=== PATIENT | male | born 1975 | race Caucasian/White ===

== ENCOUNTER 2018-07-16 09:00 | Outpatient (CLI) | payer MEDICAID ==
[~2018-07-16] VITALS: Ht 175.3 cm; Wt 90.7 kg
== END 2018-07-16 10:08 | disposition home or self-care (01) ==
LOC: PREOP 09:00
PROVIDERS: ATTEND Otolaryngology Otolaryngology/Facial Plastic Surgery
DX: Z01.818 Encounter for other preprocedural examination (principal)

== ENCOUNTER 2018-07-23 07:59 | Day surgery (SDC) | payer MEDICAID ==
[~2018-07-23] VITALS: Ht 175.3 cm; Wt 89.5 kg
--- OUTSIDE RECORDS SUMMARY | 2018-07-23 08:11 | XMS REPORT | Clinical Summary ---
Author Author Admin, EBER Organization [facility] Address Unknown Phone Allergies, Adverse Reactions, Alerts Allergy Name Reaction Description Start Date Severity Status Provider PENICILLIN Critical Active Mitch Howard MD Conditions or Problems Problem Name Problem Code Onset Date Status Entry Date Provider Comment Standard Description Annotate Asthma 493.90 Active Mitch Howard MD Asthma, unspecified Chest pain 786.50 Active Mitch Howard MD Unspecified chest pain Dysphagia 787.20 Active Harley Garcia MD Dysphagia, unspecified Medication List Medication Instructions Start Date Stop Date Generic Name NDC Status Provider Patient Instruction RANITIDINE HCL 150 MG CAPS 1 twice a day RANITIDINE HCL 39763132694 Active Mitch Howard MD Active PROAIR HFA 108 (90 BASE) MCG/ACT AERS 2 puffs prn ALBUTEROL SULFATE 88961830501 Active Mitch Howard MD Active Vital Signs Date Name Value Unit Range Description blood pressure, diastolic 81 mm[Hg] BP dennison blood pressure, systolic 117 mm[Hg] BP sys height E&M 70.5 [in_us] Bdy height pulse rate E&M 71 /min Heart rate temperature E&M 98.6 [degF] Body temperature weight E&M 192 [lb_av] Weight Measured blood pressure, diastolic 74 mm[Hg] BP dennison blood pressure, systolic 116 mm[Hg] BP sys height E&M 70.5 [in_us] Bdy height pulse rate E&M 86 /min Heart rate temperature E&M 98.2 [degF] Body temperature weight E&M 194.13 [lb_av] Weight Measured Encounters Code Encounter Date Provider Facility CPT-48863 Level 3 New Patient 15:14:59 CDT Mitch Howard MD [facility] Procedures Code Procedure Name Date Entry Date Standard Description CPT-OV Office Visit 16:42:18 CDT CPT-22055 EKG Trac and Interp 14:44:42 CDT CPT-16146 Chest 2V Frontal and Lat 14:44:42 CDT
--- OUTSIDE RECORDS SUMMARY | 2018-07-23 08:11 | XMS REPORT | Clinical Summary ---
Author Author Admin, EBER Organization [facility] Address Unknown Phone Allergies, Adverse Reactions, [...] 787.20 Active Harley Garcia MD Dysphagia, unspecified Back pain 724.5 Active Mitch Howard MD Backache, unspecified Constipation 564.00 Active Mitch Howard MD Constipation, unspecified Medication List Medication Instructions Start Date Stop Date Generic Name NDC Status Provider Patient Instruction CYCLOBENZAPRINE HCL 5 MG TABS 1 three times a day as needed for muscle spasm CYCLOBENZAPRINE HCL 99909002763 Active Mitch Howard MD Active NAPROXEN 500 MG TAB Take one (1) tablet by mouth twice a day with food for back pain NAPROXEN 33025384956 Active Mitch Howard MD Active RANITIDINE HCL 150 MG CAPS 1 twice a day RANITIDINE HCL 45874770379 Active Mitch Howard MD Active PROAIR HFA 108 (90 BASE) MCG/ACT AERS 2 puffs prn ALBUTEROL SULFATE 18806041934 Active Mitch Howard MD Active Vital Signs Date Name Value Unit Range Description blood pressure, diastolic - 8462-4 81 mm[Hg] BP dennison blood pressure, systolic - 8480-6 117 mm[Hg] BP sys height E&M - 8302-2 70.5 [in_us] Bdy height pulse rate E&M - 8867-4 71 /min Heart rate temperature E&M 98.6 [degF] Body temperature weight E&M - 3141-9 192 [lb_av] Weight Measured blood pressure, diastolic - 8462-4 74 mm[Hg] BP dennison blood pressure, systolic - 8480-6 116 mm[Hg] BP sys height E&M - 8302-2 70.5 [in_us] Bdy height pulse rate E&M - 8867-4 86 /min Heart rate temperature E&M 98.2 [degF] Body temperature weight E&M - 3141-9 194.13 [lb_av] Weight Measured Encounters Code Encounter Date Provider Facility CPT-75166 Level 4 Est. Patient 11:12:20 CDT Mitch Howard MD [facility] CPT-52966 Level 3 New Patient 15:14:59 CDT Mitch Howard MD [facility] Procedures Code Procedure Name Date Entry Date Standard Description CPT-OV Office Visit 16:42:18 CDT CPT-97064 EKG Trac and Interp 14:44:42 CDT CPT-28410 Chest 2V Frontal and Lat 14:44:42 CDT
--- OUTSIDE RECORDS SUMMARY | 2018-07-23 08:11 | XMS REPORT | Clinical Summary ---
Author Author Admin, EBER Gupta [facility] Address Unknown Phone Unavailable Allergies, Adverse Reactions, Alerts Allergy Name Reaction [...] Instructions Start Date Stop Date Generic Name ND Status Provider Patient Instruction CYCLOBENZAPRINE HCL 5 MG TABS 1 three times a day as needed for muscle spasm CYCLOBENZAPRINE HCL 27182457051 Active Mitch Howard MD Active NAPROXEN 500 MG TAB Take one (1) tablet by mouth twice a day with food for back pain NAPROXEN 46094346229 No Longer Active Mitch Howard MD Active RANITIDINE HCL 150 MG CAPS 1 twice a day RANITIDINE HCL 80403736459 Active Mitch Howard MD Active PROAIR HFA 108 (90 BASE) MCG/ACT AERS 2 puffs prn ALBUTEROL SULFATE 61966362832 Active Mitch Howard MD Active NAPROXEN 500 MG TAB Take one (1) tablet by mouth twice a day with food for back pain NAPROXEN 500 MG TAB 198379 NAPROXEN Inactive Vital Signs Date Name Value Unit Range Description blood pressure, diastolic - 8462-4 73 mm[Hg] BP dennison blood pressure, systolic - 8480-6 147 mm[Hg] BP sys pulse rate E&M - 8867-4 76 /min Heart rate temperature E&M 98.3 [degF] Body temperature weight E&M - 3141-9 191.2 [lb_av] Weight Measured blood pressure, diastolic - 8462-4 81 mm[Hg] [...] Measured Encounters Code Encounter Date Provider Facility CPT-60504 Level 4 Est. Patient 11:12:20 CDT Mitch Howard MD [facility] CPT-54261 Level 3 New Patient 15:14:59 CDT Mitch Howard MD [facility] Procedures Code Procedure Name Date Entry Date Standard Description CPT-OV Office Visit 16:42:18 CDT CPT-26199 EKG Trac and Interp 14:44:42 CDT CPT-14895 Chest 2V Frontal and Lat 14:44:42 CDT
--- OUTSIDE RECORDS SUMMARY | 2018-07-23 08:11 | XMS REPORT | Clinical Summary ---
Author Author Admin, EBER Organization [facility] Address Unknown Phone Allergies, Adverse Reactions, [...] CAPS 1 twice a day RANITIDINE HCL 16438147980 Active Mitch Howard MD Active PROAIR HFA 108 (90 BASE) MCG/ACT AERS 2 puffs prn ALBUTEROL SULFATE 66512486099 Active Mitch Howard MD Active Vital Signs [...] Measured Encounters Code Encounter Date Provider Facility CPT-19301 Level 3 New Patient 15:14:59 CDT Mitch Howard MD [facility] Procedures Code Procedure Name Date Entry Date Standard Description CPT-OV Office Visit 16:42:18 CDT CPT-71328 EKG Trac and Interp 14:44:42 CDT CPT-59049 Chest 2V Frontal and Lat 14:44:42 CDT
--- OUTSIDE RECORDS SUMMARY | 2018-07-23 08:11 | XMS REPORT | Clinical Summary ---
Author Author Admin, EBER Organization [facility] Address Unknown Phone Allergies, Adverse Reactions, Alerts [...] as needed for muscle spasm CYCLOBENZAPRINE HCL 85124816271 Active Mitch Howard MD Active NAPROXEN 500 MG TAB Take one (1) tablet by mouth twice a day with food for back pain NAPROXEN 13345735017 Active Mitch Howard MD Active RANITIDINE HCL 150 MG CAPS 1 twice a day RANITIDINE HCL 09356287520 Active Mitch Howard MD Active PROAIR HFA 108 (90 BASE) MCG/ACT AERS 2 puffs prn ALBUTEROL SULFATE 37091490157 Active Mitch Howard MD Active Vital Signs [...] Measured Encounters Code Encounter Date Provider Facility CPT-82036 Level 4 Est. Patient 11:12:20 CDT Mitch Howard MD [facility] CPT-95683 Level 3 New Patient 15:14:59 CDT Mitch Howard MD [facility] Procedures Code Procedure Name Date Entry Date Standard Description CPT-OV Office Visit 16:42:18 CDT CPT-18109 EKG Trac and Interp 14:44:42 CDT CPT-42046 Chest 2V Frontal and Lat 14:44:42 CDT
--- OUTSIDE RECORDS SUMMARY | 2018-07-23 08:11 | XMS REPORT | Clinical Summary ---
Author Author Admin, EBER Organization [facility] Address Unknown Phone Allergies, Adverse Reactions, [...] CAPS 1 twice a day RANITIDINE HCL 97370852418 Active Mitch Howard MD Active PROAIR HFA 108 (90 BASE) MCG/ACT AERS 2 puffs prn ALBUTEROL SULFATE 49337083004 Active Mitch Howard MD Active Vital Signs [...] Measured Encounters Code Encounter Date Provider Facility CPT-29938 Level 3 New Patient 15:14:59 CDT Mitch Howard MD [facility] Procedures Code Procedure Name Date Entry Date Standard Description CPT-OV Office Visit 16:42:18 CDT CPT-57981 EKG Trac and Interp 14:44:42 CDT CPT-62044 Chest 2V Frontal and Lat 14:44:42 CDT
--- OUTSIDE RECORDS SUMMARY | 2018-07-23 08:11 | XMS REPORT | Clinical Summary ---
Author Author Admin, EBER Organization [facility] Address Unknown Phone Allergies, Adverse Reactions, Alerts [...] CAPS 1 twice a day RANITIDINE HCL 83624989358 Active Mitch Howard MD Active PROAIR HFA 108 (90 BASE) MCG/ACT AERS 2 puffs prn ALBUTEROL SULFATE 29894476187 Active Mitch Howard MD Active Vital Signs [...] Measured Encounters Code Encounter Date Provider Facility CPT-40247 Level 3 New Patient 15:14:59 CDT Mitch Howard MD [facility] Procedures Code Procedure Name Date Entry Date Standard Description CPT-OV Office Visit 16:42:18 CDT CPT-12117 EKG Trac and Interp 14:44:42 CDT CPT-74257 Chest 2V Frontal and Lat 14:44:42 CDT
--- OUTSIDE RECORDS SUMMARY | 2018-07-23 08:11 | XMS REPORT | Clinical Summary ---
Author Author Admin, EBER Organization [facility] Address Unknown Phone Allergies, Adverse Reactions, [...] CAPS 1 twice a day RANITIDINE HCL 49699336576 Active Mitch Howard MD Active PROAIR HFA 108 (90 BASE) MCG/ACT AERS 2 puffs prn ALBUTEROL SULFATE 11990237359 Active Mitch Howard MD Active Vital Signs [...] Measured Encounters Code Encounter Date Provider Facility CPT-02289 Level 3 New Patient 15:14:59 CDT Mitch Howard MD [facility] Procedures Code Procedure Name Date Entry Date Standard Description CPT-OV Office Visit 16:42:18 CDT CPT-53398 EKG Trac and Interp 14:44:42 CDT CPT-39588 Chest 2V Frontal and Lat 14:44:42 CDT
--- OUTSIDE RECORDS SUMMARY | 2018-07-23 08:11 | XMS REPORT | Clinical Summary ---
Author Author Admin, EBER Organization [facility] Address Unknown Phone Allergies, Adverse Reactions, Alerts [...] CAPS 1 twice a day RANITIDINE HCL 78181641245 Active Mitch Howard MD Active PROAIR HFA 108 (90 BASE) MCG/ACT AERS 2 puffs prn ALBUTEROL SULFATE 35822836436 Active Mitch Howard MD Active Vital Signs [...] Measured Encounters Code Encounter Date Provider Facility CPT-57758 Level 3 New Patient 15:14:59 CDT Mitch Howard MD [facility] Procedures Code Procedure Name Date Entry Date Standard Description CPT-OV Office Visit 16:42:18 CDT CPT-22601 EKG Trac and Interp 14:44:42 CDT CPT-42731 Chest 2V Frontal and Lat 14:44:42 CDT
--- OUTSIDE RECORDS SUMMARY | 2018-07-23 08:12 | XMS REPORT | Continuity of Care Document ---
Author Author [facility] Organization [facility] Address Unknown Phone Unavailable Allergies Active Description Code Type Severity Reaction Onset Reported/Identified Relationship to Patient Clinical Status Yes penicillin 3 Drug N/A N/A Yes Penicillins 476 Drug Allergy N/ A N/A Confirmed or Verified Yes Penicillins [id number] Drug Allergy Unknown A CHILD 07/16/2018 Medications There is no data. Problems Date Dx Coded Attending Type Code Diagnosis Diagnosed By 07/16/2018 SLICK DUDLEY MD Ot Z01.818 ENCOUNTER FOR OTHER PREPROCEDURAL EXAMIN Procedures There is no data. Results There is no data. Encounters ACCT No. Visit Date/Time Discharge Status Pt. Type Provider Facility Loc./Unit Complaint [id number] 03/15/2017 21:00:00 03/16/2017 00:05:00 DIS Emergency MARTHA COLBY [facility] right chest pain [id number] 12/22/2013 08:20:00 12/22/2013 12:40:00 DIS Inpatient SARAH BOYCE [facility] OPS [id number] 07/16/2018 09:00:00 07/16/2018 10:08:00 DIS Outpatient SLICK DUDLEY MD [facility] PREOP ADENOTONSILLAR HYPERTROPHY [id number] 07/23/2018 12:00:00 PEN Preadmit SLICK DUDLEY MD [facility] SDC ADENOTONSILLAR HYPERTROPHY
--- OUTSIDE RECORDS SUMMARY | 2018-07-23 08:12 | XMS REPORT | Clinical Summary ---
Author Author Admin, EBER Organization [facility] Address Unknown Phone Allergies, Adverse Reactions, Alerts [...] CAPS 1 twice a day RANITIDINE HCL 45042279874 Active Mitch Howard MD Active PROAIR HFA 108 (90 BASE) MCG/ACT AERS 2 puffs prn ALBUTEROL SULFATE 61574780623 Active Mitch Howard MD Active Vital Signs [...] Measured Encounters Code Encounter Date Provider Facility CPT-69901 Level 3 New Patient 15:14:59 CDT Mitch Howard MD [facility] Procedures Code Procedure Name Date Entry Date Standard Description CPT-OV Office Visit 16:42:18 CDT CPT-63173 EKG Trac and Interp 14:44:42 CDT CPT-34953 Chest 2V Frontal and Lat 14:44:42 CDT
--- OUTSIDE RECORDS SUMMARY | 2018-07-23 08:12 | XMS REPORT | Clinical Summary ---
Author Author Admin, EBER Gupta [facility] Address Unknown Phone Unavailable Allergies, Adverse Reactions, [...] as needed for muscle spasm CYCLOBENZAPRINE HCL 18364715538 Active Mitch Howard MD Active NAPROXEN 500 MG TAB Take one (1) tablet by mouth twice a day with food for back pain NAPROXEN 83497803790 No Longer Active Mitch Howard MD Active RANITIDINE HCL 150 MG CAPS 1 twice a day RANITIDINE HCL 61503639497 Active Mitch Howard MD Active PROAIR HFA 108 (90 BASE) MCG/ACT AERS 2 puffs prn ALBUTEROL SULFATE 68635129036 Active Mitch Howard MD Active NAPROXEN 500 MG TAB Take one (1) tablet by mouth twice a day with food for back pain NAPROXEN 500 MG TAB 411491 NAPROXEN Inactive Vital Signs Date Name Value [...] Measured Encounters Code Encounter Date Provider Facility CPT-92969 Level 4 Est. Patient 11:12:20 CDT Mitch Howard MD [facility] CPT-95034 Level 3 New Patient 15:14:59 CDT Mitch Howard MD [facility] Procedures Code Procedure Name Date Entry Date Standard Description CPT-OV Office Visit 16:42:18 CDT CPT-51985 EKG Trac and Interp 14:44:42 CDT CPT-75838 Chest 2V Frontal and Lat 14:44:42 CDT
--- OUTSIDE RECORDS SUMMARY | 2018-07-23 08:12 | XMS REPORT | Clinical Summary ---
Author Author Admin, EBER Organization [facility] Address Unknown Phone Allergies, Adverse Reactions, Alerts [...] CAPS 1 twice a day RANITIDINE HCL 33775723431 Active Mitch Howard MD Active PROAIR HFA 108 (90 BASE) MCG/ACT AERS 2 puffs prn ALBUTEROL SULFATE 27920132510 Active Mitch Howard MD Active Vital Signs [...] Measured Encounters Code Encounter Date Provider Facility CPT-68693 Level 3 New Patient 15:14:59 CDT Mitch Howard MD [facility] Procedures Code Procedure Name Date Entry Date Standard Description CPT-OV Office Visit 16:42:18 CDT CPT-25533 EKG Trac and Interp 14:44:42 CDT CPT-04890 Chest 2V Frontal and Lat 14:44:42 CDT
--- OUTSIDE RECORDS SUMMARY | 2018-07-23 08:12 | XMS REPORT | Clinical Summary ---
Author Author Admin, EBER Organization [facility] Address Unknown Phone Allergies, Adverse Reactions, Alerts [...] CAPS 1 twice a day RANITIDINE HCL 77501132099 Active Mitch Howard MD Active PROAIR HFA 108 (90 BASE) MCG/ACT AERS 2 puffs prn ALBUTEROL SULFATE 24890938280 Active Mitch Howard MD Active Vital Signs [...] Measured Encounters Code Encounter Date Provider Facility CPT-50412 Level 3 New Patient 15:14:59 CDT Mitch Howard MD [facility] Procedures Code Procedure Name Date Entry Date Standard Description CPT-OV Office Visit 16:42:18 CDT CPT-75179 EKG Trac and Interp 14:44:42 CDT CPT-69568 Chest 2V Frontal and Lat 14:44:42 CDT
[2018-07-23] MEDS ORDERED: NS IV 500 ML 500 ML IV PRN (08:20)
[2018-07-23] MEDS ORDERED: APAP 325 MG/10.15 ML LIQ (TYLENOL) UDC PO ONE (08:30)
[2018-07-23] MEDS ORDERED: MIDAZOLAM SYRUP (VERSED) 10MG/5ML UDC PO ONE (08:30)
[2018-07-23] MEDS ORDERED: LACTATED RINGERS 1,000 ML IV PRN (08:31)
[2018-07-23 09:09] LABS: BASOPHILS % (AUTO) 1 % (0-10); EOSINOPHILS # (AUTO) 0.1 10^3/uL (0.0-0.3); EOSINOPHILS % (AUTO) 1 % (0-10); HEMATOCRIT 46 % (40-54); HEMOGLOBIN 15.9 G/DL (13.3-17.7); LYMPHOCYTES # (AUTO) 1.7 X 10^3 (1.0-4.0); LYMPHOCYTES % (AUTO) 26 % (12-44); MEAN CORPUSCULAR HEMOGLOBIN 29 PG (25-34); MEAN CORPUSCULAR HGB CONC 35 G/DL (32-36); MEAN CORPUSCULAR VOLUME 84 FL (80-99); MEAN PLATELET VOLUME 8.9 FL (7.4-10.4); MONOCYTES # (AUTO) 0.8 X 10^3 (0.0-1.0); MONOCYTES % (AUTO) 11 % (0-12); NEUTROPHILS % (AUTO) 61 % (42-75); PLATELET COUNT 242 10^3/uL (130-400); RED BLOOD COUNT 5.49 10^6/uL (4.35-5.85); RED CELL DISTRIBUTION WIDTH 12.9 % (10.0-14.5); WHITE BLOOD COUNT 6.7 10^3/uL (4.3-11.0)
--- NOTE | 2018-07-23 09:14 | Progress Note-Pre Operative ---
Pre-Operative Progress Note H&P Reviewed The H&P was reviewed, patient examined and no changes noted. Date Seen by Provider: Jul 23, 2018 Time Seen by Provider: 09:00 Date H&P Reviewed: Jul 23, 2018 Time H&P Reviewed: 09:00 Pre-Operative Diagnosis: Chronic Tonsillitis, Tonsillar Hypertrophy SLICK DUDLEY MD Jul 23, 2018 9:14 am
[2018-07-23] MEDS ORDERED: ONDANSETRON 4 MG/2 ML (SDV) Z0FRAN ONE (09:33)
[2018-07-23] MEDS ORDERED: DEXAMETHASONE 10 MG/ML (DECADRON) 1 ML VIAL ONE (09:33)
[2018-07-23] MEDS ORDERED: MIDAZOLAM 2 MG/2 ML (VERSED) VIAL ONE (09:33)
[2018-07-23] MEDS ORDERED: LIDOCAINE PF 2% 5 ML (XYLOCAINE) VIAL ONE (09:33)
[2018-07-23] MEDS ORDERED: proPOfol 200 MG/20 ML (DIPRIVAN) VIAL IV ONE (09:33)
[2018-07-23] MEDS ORDERED: SEVOFLURANE (ULTANE) 15 ML INHAL SOLN ONE (09:33)
[2018-07-23] MEDS ORDERED: fentaNYL INJECTION 100 MCG/2 ML AMP ONE (09:33)
[2018-07-23] MEDS ORDERED: GLYCOPYRROLATE 0.2 MG/ML (ROBINUL) 2 ML VIAL ONE (09:43)
[2018-07-23] MEDS ORDERED: NEOSTIGMINE 1 MG/ML 5 ML SYRINGE ONE (09:43)
[2018-07-23] MEDS ORDERED: SUCCINYLCHOLINE INJ 100 MG/5 ML SYR ONE (09:57)
[2018-07-23] MEDS ORDERED: APAP 325 MG/10.15 ML LIQ (TYLENOL) UDC PO PRN (10:15)
[2018-07-23] MEDS ORDERED: HYDROcodone/APAP 7.5MG-325 MG/15 ML (LORTAB) UDC PO PRN (10:15)
--- NOTE | 2018-07-23 10:15 | Progress Note-Post Operative ---
Post-Operative Progess Note Surgeon (s)/Automobile Inspector (s) Surgeon SLICK DUDLEY MD Automobile Inspector n/a Pre-Operative Diagnosis Chronic Tonsillitis, Tonsillar Hypertrophy Post-Operative Diagnosis same Post-Op Procedure Note Date of Procedure: Jul 23, 2018 Name of Procedure Performed: Tonsillectomy Description & Findings Description and Findings: n/a Anesthesia Type get Estimated Blood Loss minimal Packing none. Specimen(s) collected/removed tonsils SLICK DUDELY MD Jul 23, 2018 10:15 am
[2018-07-23] MEDS ORDERED: ONDANSETRON 4 MG/2 ML (SDV) Z0FRAN IVP PRN (10:30)
[2018-07-23] MEDS ORDERED: fentaNYL INJECTION 100 MCG/2 ML AMP IVP ONE (10:30)
[2018-07-23] MEDS ORDERED: morphine INJ 10 MG/ML 1ML (SYR OR VIAL) IVP ONE (10:30)
[2018-07-23 11:20] VITALS: BP 127/77
[2018-07-23] MEDS: NS IV 1000 ML 1,000 ML IV SCH ×2 (11:20→11:30)
[2018-07-23 11:25] VITALS: BP 127/77
[2018-07-23] MEDS ORDERED: HYDR15SO8 PO (11:35)
[2018-07-23] MEDS ORDERED: TETRACAINESUCKERS MT (11:35)
[2018-07-23] MEDS ORDERED: AZIT200S47 PO (11:35)
[2018-07-23] MEDS ORDERED: DEXAINTSOL PO (11:35)
[2018-07-23 11:50] VITALS: BP 122/73
[2018-07-23 12:20] VITALS: BP 124/79
--- NOTE | 2018-07-23 13:42 | Anesthesia-General Post-Op ---
General Patient Condition Mental Status/LOC: Same as Preop Cardiovascular: Satisfactory Nausea/Vomiting: Absent Respiratory: Satisfactory Pain: Controlled Complications: Absent Post Op Complications Complications None Follow Up Care/Instructions Patient Instructions None needed. Anesthesia/Patient Condition Patient Condition Patient is doing well, no complaints, stable vital signs, no apparent adverse anesthesia problems. ANNIE FUNEZ DO Jul 23, 2018 13:42
== END 2018-07-23 14:30 | disposition home or self-care (01) ==
LOC: SDC 07:59
PROVIDERS: ATTEND Otolaryngology Otolaryngology/Facial Plastic Surgery
DX: J35.01 Chronic tonsillitis (principal)
CPT/HCPCS: 36415; 85025; 87081; 88304

== ENCOUNTER 2019-04-14 21:56 | Emergency (ER) | payer MEDICAID ==
[~2019-04-14] VITALS: Ht 175.3 cm; Wt 96.3 kg
[~2019-04-14 21:56] MED LIST: AZIT200S47 PO; DEXAINTSOL PO; HYDR15SO8 PO; TETRACAINESUCKERS MT
[2019-04-14 22:20] LABS: BASOPHILS % (AUTO) 1 % (0-10); EOSINOPHILS # (AUTO) 0.1 10^3/uL (0.0-0.3); EOSINOPHILS % (AUTO) 1 % (0-10); HEMATOCRIT 43 % (40-54); HEMOGLOBIN 14.5 G/DL (13.3-17.7); LYMPHOCYTES # (AUTO) 2.4 X 10^3 (1.0-4.0); LYMPHOCYTES % (AUTO) 33 % (12-44); MEAN CORPUSCULAR HEMOGLOBIN 29 PG (25-34); MEAN CORPUSCULAR HGB CONC 34 G/DL (32-36); MEAN CORPUSCULAR VOLUME 86 FL (80-99); MEAN PLATELET VOLUME 8.9 FL (7.4-10.4); MONOCYTES # (AUTO) 0.8 X 10^3 (0.0-1.0); MONOCYTES % (AUTO) 11 % (0-12); NEUTROPHILS # (AUTO) 3.9 X 10^3 (1.8-7.8); NEUTROPHILS % (AUTO) 54 % (42-75); PLATELET COUNT 235 10^3/uL (130-400); RED CELL DISTRIBUTION WIDTH 13.1 % (10.0-14.5); WHITE BLOOD COUNT 7.2 10^3/uL (4.3-11.0)
--- NOTE | 2019-04-14 22:42 | ED EENT ---
History of Present Illness General Chief Complaint: General Problems/Pain Stated Complaint: HEADACHE Nursing Triage Note: c/o right head pain that radiates to his right jaw area, and states his throat feels like there is something in in when he tries to swallow. denies shortness of breath, pain 7\\10. monitoring maintained. Source: patient History of Present Illness Date Seen by Provider: Apr 14, 2019 Time Seen by Provider: 22:05 Initial Comments PT ARRIVES VIA POV FROM HOME C/O DIFFICULTY SWALLOWING AND FEELS LIKE SOMETHING IS STUCK IN HIS THROAT ONGOING PROBLEM "SINCE I GOT MY TONSILS OUT"--LAST YEAR C/O PAIN TO RIGHT JAW, THROAT, BACK OF MOUTH AND NECK STATES "I ATE SINHALA CHOCOLATE CAKE 8 DAYS AGO AND IT GAVE ME A HEADACHE ON THE LEFT AND THEN IT MOVED TO THE RIGHT" NO FEVER NO SWELLING TO FACE HAS POOR DENTITION, BUT DOES NOT C/O ACTUAL DENTAL PAIN--PAIN TO RIGHT TMJ AREA, POSTERIOR GUMS ON RIGHT, RIGHT TONSIL AREA AND RIGHT JAW, AND RIGHT NECK/THROAT AREA NO PROBLEMS BREATHING NO PROBLEMS HANDLING SECRETIONS CAN SWALLOW FOOD AND DRINK LIQUIDS, JUST FEELS LIKE SOMETHING IS STUCK IN HIS THROAT SYMPTOMS ARE NO DIFFERENT TODAY IN ANY WAY HAS NOT SOUGHT CARE UNTIL TODAY HAS NOT TAKEN ANYTHING FOR PAIN ON REVIEW OF OLD RECORDS, PT HAD TONSILLECTOMY 07/2018, AND HAD THEM REMOVED FOR THIS EXACT SAME COMPLAINT---PROBLEMS DYSPHAGIA/DIFFICULTY SWALLOWING FOOD. HAD EGD PRIOR TO TONSILLECTOMY PCP: FT. SARAH RAMOS. ALSO [place] [facility] [place] [facility] Allergies and Home Medications Allergies Coded Allergies: Penicillins (Verified Allergy, Unknown, A CHILD, 07/16/18) Home Medications Azithromycin 200 Mg/5 Ml Susp.recon, 1 TSP PO DAILY Prescribed by: ROSE MARIE ARMSTRONG on 07/23/18 1135 Cefprozil 500 Mg Tablet, 500 MG PO BID Prescribed by: ABIMAEL LAMBERT on 04/15/19 0001 Dexamethasone 1 Mg/1 Ml Hilda, 2 TSP PO DAILY Mix 4MG/2.5CC water Prescribed by: ROSE MARIE ARMSTRONG on 07/23/18 1135 Hydrocodone/Acetaminophen 15 Ml Solution, 2-3 TSP PO Q4H PRN for PAIN-MODERATE 8 OZ BOTTLE Prescribed by: ROSE MARIE ARMSTRONG on 07/23/18 1135 Methylprednisolone 4 Mg Tab.ds.pk, 4 MG PO UD Prescribed by: ABIMAEL LAMBERT on 04/15/19 0001 Tetracaine Sucker Ea, 1 EA MT UD PRN for PAIN Tetracain Suckers These suckers are custom made and require a prescription. Moisten the sucker first and then suck on it gently as far back in the mouth as possible for 2-3 days. You can repeadt it in about an hour. This will take the edge off but not completely numb the throat. Prescribed by: ROSE MARIE ARMSTRONG on 07/23/18 1135 Patient Home Medication List Home Medication List Reviewed: Yes Review of Systems Review of Systems Constitutional: no symptoms reported Eyes: No Symptoms Reported Ears: No Symptoms Reported Nose: no symptoms reported Mouth: see HPI Throat: see HPI Respiratory: no symptoms reported Cardiovascular: no symptoms reported Gastrointestinal: no symptoms reported Musculoskeletal: no symptoms reported Skin: no symptoms reported Neurological: See HPI, Headache; Denies Numbness, Denies Paresthesia Hematologic/Lymphatic: No Symptoms Reported Immunological/Allergic: no symptoms reported Past Nclihjw-Lalgfp-Ipdqxr Hx Patient Social History Alcohol Use: Denies Use Recreational Drug Use: No Smoking Status: Never a Smoker 2nd Hand Smoke Exposure: No Recent Foreign Travel: No Contact w/Someone Who Travel: No Recent Infectious Disease Expo: No Recent Hopitalizations: No Physical Abuse: No Sexual Abuse: No Mistreated: No Fear: No Immunizations Up To Date Tetanus Booster (TDap): Unknown PED Vaccines UTD: No Seasonal Allergies Seasonal Allergies: No Past Medical History Surgeries: Yes (BILAT CTR, TOANAIL REMOVAL; EGD) Orthopedic, Tonsillectomy Respiratory: No Cardiac: No Neurological: No Reproductive Disorders: No Genitourinary: No Gastrointestinal: Yes Gastroesophageal Reflux Musculoskeletal: Yes (BILATERAL CARPAL TUNNEL SURGERY) Endocrine: No HEENT: Yes ("feels like there is something in my throat"; S/P TONSILLECTOMY) Dysphagia, Tonsilitis Cancer: No Psychosocial: No Integumentary: No Blood Disorders: No Adverse Reaction/Blood Tranf: No (N/A) Physical Exam Vital Signs Vital Signs - First Documented 04/14/19 22:00 Temp 99.7 Pulse 78 Resp 20 B/P (MAP) 146/87 (106) Pulse Ox 97 Height, Weight, BMI Height: 5'9.00" Weight: 212lbs. 6.0oz. 96.143915zw; 29.2 BMI Method:Stated General Appearance: WD/WN, no apparent distress, other (SMILING, VERY TALKATIVE, DOES NOT APPEAR TO BE IN ANY DISCOMFORT OR DISTRESS) Eyes: bilateral eye normal inspection, bilateral eye PERRL, bilateral eye EOMI Ears: bilateral ear auricle normal, bilateral ear canal normal, bilateral ear TM normal Nose: normal inspection Mouth/Throat: No dental tenderness, No excessive drooling, No mandibular swelling, No maxillary swelling, No pharynx swelling, No tongue swollen, No tonsillar exudate, No tonsillar swelling, No trismus, No uvula swelling, No voice changes; other (TENDERNESS TO RIGHT TMJ, MAXILLA AND MANDIBLE. TENDERNESS TO INSIDE OF MOUTH--RIGHT POSTERIOR GUMS, NO SWELLING TO GUMS. POOR DENTITON, BUT MOLARS ARE NOT PRESENT. TONSILS DO NOT APPEAR INFLAMED OR ENLARGED. NO EVIDENCE OF PERITONSILLAR ABSCESS. NO CLICKING/POPPING OF TMJ ON OPENING/CLOSING OF MOUTH) Neck: full range of motion, supple; No thyromegaly; other (TENDERNESS TO RIGHT SUBMANDIBULAR AREA AND RIGHT SIDE OF NECK--ANTERIORLY AND LATERALLY. NO MASSES OR ADENOPATHY OR DISCOLORATION. THYROID IS NOT PALPABLE. 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 II-XII nml as tested, no motor/sensory deficits, alert, normal mood/affect, oriented x 3 Skin: normal color, warm/dry Progress/Results/Core Measures Results/Orders Lab Results Laboratory Tests Test 04/14/19 22:10 04/14/19 22:15 Range/Units White Blood Count 7.2 4.3-11.0 10^3/uL Red Blood Count 4.98 4.35-5.85 10^6/uL Hemoglobin 14.5 13.3-17.7 G/DL Hematocrit 43 40-54 % Mean Corpuscular Volume 86 80-99 FL Mean Corpuscular Hemoglobin 29 25-34 PG Mean Corpuscular Hemoglobin Concent 34 32-36 G/DL Red Cell Distribution Width 13.1 10.0-14.5 % Platelet Count 235 130-400 10^3/uL Mean Platelet Volume 8.9 7.4-10.4 FL Neutrophils (%) (Auto) 54 42-75 % Lymphocytes (%) (Auto) 33 12-44 % Monocytes (%) (Auto) 11 0-12 % Eosinophils (%) (Auto) 1 0-10 % Basophils (%) (Auto) 1 0-10 % Neutrophils # (Auto) 3.9 1.8-7.8 X 10^3 Lymphocytes # (Auto) 2.4 1.0-4.0 X 10^3 Monocytes # (Auto) 0.8 0.0-1.0 X 10^3 Eosinophils # (Auto) 0.1 0.0-0.3 10^3/uL Basophils # (Auto) 0.0 0.0-0.1 10^3/uL Sodium Level 140 135-145 MMOL/L Potassium Level 3.8 3.6-5.0 MMOL/L Chloride Level 106 98-107 MMOL/L Carbon Dioxide Level 24 21-32 MMOL/L Anion Gap 10 5-14 MMOL/L Blood Urea Nitrogen 14 7-18 MG/DL Creatinine 1.12 0.60-1.30 MG/DL Estimat Glomerular Filtration Rate > 60 BUN/Creatinine Ratio 13 Glucose Level 93 70-105 MG/DL Calcium Level 8.8 8.5-10.1 MG/DL Corrected Calcium 8.7 8.5-10.1 MG/DL Total Bilirubin 0.3 0.1-1.0 MG/DL Aspartate Amino Transf (AST/SGOT) 54 H 5-34 U/L Alanine Aminotransferase (ALT/SGPT) 109 H 0-55 U/L Alkaline Phosphatase 104 40-136 U/L Total Protein 7.4 6.4-8.2 GM/DL Albumin 4.1 3.2-4.5 GM/DL Amylase Level 35 25-125 U/L Lipase 15 8-78 U/L Group A Streptococcus Screen NEGATIVE NEGATIVE Micro Results Microbiology 04/14/19 Throat Culture - Preliminary, Resulted No Beta Strep isolated My Orders Orders - ABIMAEL LAMBERT DO Ed Iv/Invasive Line Start (04/14/19 22:11) Ct Neck (Soft Tissue) W (04/14/19 22:11) Amylase (04/14/19 22:11) Cbc With Automated Diff (04/14/19 22:11) Comprehensive Metabolic Panel (04/14/19 22:11) Lipase (04/14/19 22:11) Rapid Strep A Screen (04/14/19 22:35) Iohexol Injection (Omnipaque 350 Mg/Ml 1 (04/14/19 23:45) Received Contrast (Hold Metformin- Contr (04/14/19 23:45) Ns (Ivpb) (Sodium Chloride 0.9% Ivpb Bag (04/14/19 23:45) Medications Given in ED Vital Signs/I&O Blood Pressure Mean: 106 Progress Progress Note : Progress Note UNEVENTFUL ER STAY PT ADVISED OF NEED FOR FURTHER EVALUATION OF LIVER FUNCTION TESTS AND NEED FOR FOLLOW UP WITH HIS PCP FOR THAT. Diagnostic Imaging Comments CT NECK SOFT TISSUES--NORMAL, PER [facility] VIA FAX AT 0209 Reviewed: Reviewed by Me Departure Impression Primary Impression: RIGHT THROAT PAIN Additional Impressions: Globus sensation Elevated liver enzymes Disposition: HOME, SELF-CARE Condition: Stable Departure-Patient Inst. Referrals: WAGNER CHUA MD (PCP/Family) Primary Care Physician Patient Instructions: Dysphagia (DC), Liver Function Test, Sore Throat, Adult (DC) Add. Discharge Instructions: FOLLOW UP WITH DR. DUDLEY FOR FURTHER CARE--CALL IN AM FOR APPOINTMENT All discharge instructions reviewed with patient and/or family. Voiced understanding. Scripts Methylprednisolone (Medrol) 4 Mg Tab.ds.pk 4 MG PO UD, #1 PKG Prov: ABIMAEL LAMBERT DO 04/15/19 Cefprozil (Cefprozil) 500 Mg Tablet 500 MG PO BID, #20 TAB Prov: ABIMAEL LAMBERT DO 04/15/19 ABIMAEL LAMBERT DO Apr 14, 2019 22:42
[2019-04-14 22:43] LABS: ALANINE AMINOTRANSFERASE 109 U/L (0-55); ALBUMIN 4.1 GM/DL (3.2-4.5); ALKALINE PHOSPHATASE 104 U/L (40-136); AMYLASE 35 U/L (25-125); BILIRUBIN,TOTAL 0.3 MG/DL (0.1-1.0); BUN/CREATININE RATIO 13; CALCIUM 8.8 MG/DL (8.5-10.1); CARBON DIOXIDE 24 MMOL/L (21-32); CHLORIDE 106 MMOL/L (98-107); CREATININE SERUM 1.12 MG/DL (0.60-1.30); GFR ESTIMATED > 60; GLUCOSE 93 MG/DL (70-105); LIPASE 15 U/L (8-78); POTASSIUM 3.8 MMOL/L (3.6-5.0); SODIUM 140 MMOL/L (135-145); TOTAL PROTEIN 7.4 GM/DL (6.4-8.2)
[2019-04-14] MEDS ORDERED: NS 100 ML (IVPB) BAG IV ONE (23:45)
[2019-04-14] MEDS ORDERED: IOHEXOL 350 MG/ML 100 ML (OMNIPAQUE 350) VIAL IV ONE (23:45)
[2019-04-14] MEDS ORDERED: HOLD METFORMIN - RECEIVED CONTRAST 20 ML VIAL IV SCH (23:45)
[2019-04-15] MEDS ORDERED: CEFP500T4 PO (00:01)
[2019-04-15] MEDS ORDERED: METH4TAB PO (00:01)
[2019-04-15 00:30] VITALS: BP 109/59
--- NOTE | 2019-04-15 06:20 | Diagnostic Imaging Report ---
PROCEDURE: CT neck soft tissue with contrast. TECHNIQUE: Multiple contiguous axial images were obtained through the neck after the administration of contrast. Auto Exposure Controls were utilized during the CT exam to meet ALARA standards for radiation dose reduction. INDICATION: Right side of jaw pain. Hurts to swallow. COMPARISON: None. Findings: The visualized intracranial contents demonstrate no evidence of pathologic intracranial enhancement or intracranial mass effect. Visualized orbital contents are unremarkable. The visualized paranasal sinuses are clear. The mastoids and middle ears are clear. The posterior nasopharynx and oropharynx demonstrate appropriate symmetry. There is no displacement of the parapharyngeal fat planes. There is no abnormal process evident within the prevertebral or retropharyngeal space. There is no evidence of abnormal thickening of the epiglottis or aryepiglottic folds. The vocal folds appear symmetric. The parotid, submandibular and thyroid gland are unremarkable. No pathologically enlarged cervical lymph nodes are evident. No focal inflammatory changes are demonstrated. No soft tissue mass or fluid collection demonstrated. The vascular structures the neck demonstrate no evidence of high-grade stenosis on this nondedicated exam. The visualized lung apices are clear. There are mild degenerative features within the cervical spine without CT evidence of an acute or suspicious osseous abnormality. Cervical spine alignment appears within normal limits. Impression: 1. Appropriate symmetry of the aerodigestive tract. Agree with overnight report. 2. No evidence of pathologic adenopathy. 3. No soft tissue mass, fluid collection or focal inflammatory changes demonstrated. Dictated by: Dictated on workstation # [id number]
== END 2019-04-15 00:30 | disposition home or self-care (01) ==
LOC: EDUNIT# 21:56 → ER 21:58
DX: R07.0 Pain in throat (principal); R94.5 Abnormal results of liver function studies; R09.89 Other specified symptoms and signs involving the circulatory and respiratory systems; K21.9 Gastro-esophageal reflux disease without esophagitis; Z88.0 Allergy status to penicillin; Z90.89 Acquired absence of other organs
CPT/HCPCS: 36415; 70491; 80053; 82150; 83690; 85025; 87430

== ENCOUNTER → 2019-05-04 | Outpatient (CLI) | payer MEDICAID ==
[~2019-05-04] MED LIST changes: +BARIUM SUSPENSION 105% (LIQUID POLIBAR PLUS) 240 ML/DOSE PO ONE; +BARIUM SUSPENSION 60% (LIQUID EZ PAQUE) 240 ML DOSE PO ONE; +CEFP500T4 PO; +METH4TAB PO
--- NOTE | 2019-05-04 18:34 | Diagnostic Imaging Report ---
INDICATION: Dysphagia and globus sensation. TECHNIQUE: The patient ingested effervescent crystals as well as thin and thick barium, and imaging of the esophagus was performed. A total of 1 minute and 15 seconds of fluoroscopy was utilized. FINDINGS: The esophagus has a smooth contour. No mass or stricture is identified. No gastroesophageal reflux was demonstrated. Occasional tertiary contractions were visualized. Patient does have a small hiatal hernia. IMPRESSION: Small hiatal hernia. The study is otherwise unremarkable. Dictated by: Dictated on workstation # [id number]
== END ==
LOC: RAD 08:19
PROVIDERS: ATTEND Otolaryngology Otolaryngology/Facial Plastic Surgery
DX: K44.9 Diaphragmatic hernia without obstruction or gangrene (principal)
CPT/HCPCS: 74220

== ENCOUNTER → 2019-10-04 | Outpatient (CLI) | payer MEDICAID ==
[~2019-10-04] MED LIST changes: -BARIUM SUSPENSION 105% (LIQUID POLIBAR PLUS) 240 ML/DOSE PO ONE; -BARIUM SUSPENSION 60% (LIQUID EZ PAQUE) 240 ML DOSE PO ONE
--- NOTE | 2019-10-04 09:34 | Diagnostic Imaging Report ---
INDICATION: Constipation and back pain x2 weeks. TECHNIQUE: Supine and upright view of the abdomen 9:20 AM CORRELATION STUDY: None FINDINGS: Imaging of the abdomen demonstrates the bowel gas pattern to be unremarkable and without evidence for obstruction. No significant differential air-fluid levels. Mild severity fecal retention of stool throughout the colon. No large fecal impaction. No evidence for free air. No pathologic intraabdominal calcifications. Lung bases clear. IMPRESSION: 1. Mild severity fecal impaction. No evidence for bowel obstruction. Dictated by: Dictated on workstation # [id number]
== END ==
LOC: RAD FS 09:15
PROVIDERS: ATTEND Nurse Practitioner Family
DX: K59.00 Constipation, unspecified (principal); M54.5 Low back pain
CPT/HCPCS: 74019

== ENCOUNTER → 2020-02-29 | Outpatient (CLI) | payer MEDICAID ==
--- NOTE | 2020-02-29 12:41 | Diagnostic Imaging Report ---
INDICATION: Fall with left wrist pain. TIME OF EXAM: 12:18 PM 3 views of the left wrist were obtained. FINDINGS: Distal radius and ulna are intact. There is an osseous density noted on the lateral view at the level of the dorsum of the carpus which could indicate a fracture of the triquetral bone. No other fractures are identified. Metacarpals are intact. IMPRESSION: Question of triquetral fracture. No other abnormality is detected. Dictated by: Dictated on workstation # [id number]
== END ==
LOC: RAD FS 12:08
PROVIDERS: ATTEND Nurse Practitioner Family
DX: M25.532 Pain in left wrist (principal); W19.XXXA Unspecified fall, initial encounter
CPT/HCPCS: 73110

== ENCOUNTER → 2020-03-20 | Outpatient (CLI) | payer MEDICAID ==
--- NOTE | 2020-03-20 10:13 | Diagnostic Imaging Report ---
INDICATION: Fracture follow-up left wrist. Comparison with 02/29/2020. FINDINGS: Small nondisplaced avulsion injury along the tip of the triquetrum dorsally is again noted and appears unchanged in position. No new abnormalities have developed. Radiocarpal joints in good alignment. IMPRESSION: Small nondisplaced triquetral fracture along the dorsum of triquetrum again noted. Dictated by: Dictated on workstation # [id number]
== END ==
LOC: RAD FS 09:04
PROVIDERS: ATTEND Nurse Practitioner
DX: S62.112D Displaced fracture of triquetrum [cuneiform] bone, left wrist, subsequent encounter for fracture with routine healing (principal); X58.XXXD Exposure to other specified factors, subsequent encounter
CPT/HCPCS: 73110

== ENCOUNTER → 2020-04-10 | Outpatient (CLI) | payer MEDICAID ==
--- NOTE | 2020-04-10 09:50 | Diagnostic Imaging Report ---
EXAMINATION: Left wrist, 2 views INDICATION: Follow-up of fracture. COMPARISON: Prior wrist radiographs performed on 02/29/2020 and 03/20/2020. FINDINGS: There is persistence of a well-corticated ossific density in the dorsum of the wrist. No new/acute fracture or osseous abnormality is demonstrated. Bony alignment is maintained. Carpal configuration is normal. Soft tissues are unremarkable. IMPRESSION: No significant change in small triquetral avulsion fracture. No new fracture or acute osseous abnormality is demonstrated. Dictated by: Dictated on workstation # [id number]
== END ==
LOC: RAD FS 08:59
PROVIDERS: ATTEND Nurse Practitioner
DX: S62.112D Displaced fracture of triquetrum [cuneiform] bone, left wrist, subsequent encounter for fracture with routine healing (principal)
CPT/HCPCS: 73100

== ENCOUNTER 2020-04-24 06:37 | Outpatient (RCR) | payer MEDICAID | END 2020-04-27 11:31 | disposition home or self-care (01) | LOC: PREOP 06:37 | PROVIDERS: ATTEND Surgery | DX: Z01.818 Encounter for other preprocedural examination (principal) ==

== ENCOUNTER → 2020-04-27 | Outpatient (CLI) | payer MEDICAID | LOC: LAB FS 09:44 | PROVIDERS: ATTEND Surgery | DX: Z01.818 Encounter for other preprocedural examination (principal); Z01.812 Encounter for preprocedural laboratory examination; R19.7 Diarrhea, unspecified; Z20.828 Contact with and (suspected) exposure to other viral communicable diseases | CPT/HCPCS: 87635 ==

== ENCOUNTER → 2020-06-25 | Outpatient (CLI) | payer MEDICAID | LOC: RAD 08:30 | PROVIDERS: ATTEND Surgery | DX: R19.7 Diarrhea, unspecified (principal); R10.9 Unspecified abdominal pain ==

== ENCOUNTER 2020-07-05 19:07 | Emergency (ER) | payer MEDICAID ==
[~2020-07-05] VITALS: Ht 175 cm; Wt 94.7 kg
[2020-07-05] MEDS ORDERED: CETI10TA17 (19:17)
[2020-07-05] MEDS ORDERED: PRD10T (19:17)
[2020-07-05] MEDS ORDERED: ALBUTEROL (19:17)
--- NOTE | 2020-07-05 19:47 | ED GI ---
General Chief Complaint: Rect Problems Stated Complaint: RECTAL BLEEDING Nursing Triage Note: BLOOD WHEN WIPING 2 TIMES THIS WEEK. Sepsis Screen: No Definite Risk Source of Information: Patient Exam Limitations: No Limitations History of Present Illness Date Seen by Provider: Jul 05, 2020 Time Seen by Provider: 19:30 Initial Comments Patient presents ER by private conveyance with chief complaint of intermittent bleeding couple times a week bright red blood on wiping and mixed in the stool for the past month and a half. He had a scope upper and lower GI done by Dr. Ziegler at that time. He is not exactly certain why he had the scopes done but he thinks he was having a little bit of bleeding before the scopes as well as he is having difficulty with swallowing. Primary care is Dr. Luna. He has not to get records to Dr. Lnua so she has not been able to help him know where to go or what to do next. He is concerned about the bleeding but is not having any chest pain shortness of air or weakness. No history of needing transfusions. He is not on blood thinners. He says that his surgeon told him he was post to get an ultrasound done prior to the scopes but is not sure of what or why. He did not get the ultrasound done when it was rescheduled after the scopes because of scheduling issues. He is here today because he is concerned about the bleeding and does not know what to do about it. He says occasionally he gets a little pain in his rectum radiating up his back but not always. He's not having any abdominal discomfort nausea or vomiting. He says his stools have been mostly soft ever since the endoscopy. Allergies and Home Medications Allergies Coded Allergies: Penicillins (Verified Allergy, Unknown, A CHILD, 07/16/18) Patient Home Medication List Home Medication List Reviewed: Yes Review of Systems Review of Systems Constitutional: No chills, No diaphoresis EENTM: No Blurred Vision, No Double Vision Respiratory: Denies Cough, Denies Shortness of Air Cardiovascular: Denies Chest Pain, Denies Edema Gastrointestinal: Denies Abdomen Distended, Denies Abdominal Pain Genitourinary: Denies Burning, Denies Discharge Musculoskeletal: No back pain, No joint pain Skin: No pruritus, No rash Psychiatric/Neurological: Denies Headache, Denies Numbness All Other Systems Reviewed Negative Unless Noted: Yes Past Kaorvji-Pdyuhp-Ozqjtq Hx Patient Social History Alcohol Use: Denies Use Recreational Drug Use: No Smoking Status: Never a Smoker 2nd Hand Smoke Exposure: No Recent Foreign Travel: No Contact w/Someone Who Travel: No Recent Infectious Disease Expo: No Recent Hopitalizations: No Immunizations Up To Date Tetanus Booster (TDap): Unknown PED Vaccines UTD: No Seasonal Allergies Seasonal Allergies: No Past Medical History Surgeries: Yes (BILAT CTR, TOENAIL REMOVAL; EGD,COLONOSCOPY) Orthopedic, Tonsillectomy Respiratory: No Cardiac: No Neurological: No Reproductive Disorders: No Genitourinary: No Gastrointestinal: Yes Gastroesophageal Reflux Musculoskeletal: Yes (BILATERAL CARPAL TUNNEL SURGERY) Endocrine: No HEENT: Yes Dysphagia, Tonsilitis Cancer: No Psychosocial: No Integumentary: No Blood Disorders: No Adverse Reaction/Blood Tranf: No (N/A) Physical Exam Vital Signs Vital Signs - First Documented 07/05/20 19:11 Temp 36.3 Pulse 88 Resp 18 B/P (MAP) 132/92 (105) Pulse Ox 99 O2 Delivery Room Air Capillary Refill : Less Than 3 Seconds Height/Weight/BMI Height: 5'9.00" Weight: 212lbs. 6.0oz. 96.912748rv; 30.00 BMI Method:Stated General Appearance: WD/WN, no apparent distress HEENT: normal ENT inspection, pharynx normal Respiratory: no respiratory distress, no accessory muscle use Cardiovascular: normal peripheral pulses, regular rate, rhythm Peripheral Pulses: 2+ Radial Pulses (R), 2+ Radial Pulses (L) Gastrointestinal: normal bowel sounds, non tender, soft Rectal: other (small amount of bright red blood at the anus. No mass, fissure or inflamed hemorrhoid.) Extremities: normal range of motion, non-tender, normal inspection Neurologic/Psychiatric: alert, normal mood/affect, oriented x 3 Skin: normal color, warm/dry Progress/Results/Core Measures Results/Orders My Orders Orders - CR ARMAS Cbc With Automated Diff (07/05/20 19:41) Comprehensive Metabolic Panel (07/05/20 19:41) Protime With Inr (07/05/20 19:41) Vital Signs/I&O 07/05/20 19:11 Temp 36.3 Pulse 88 Resp 18 B/P (MAP) 132/92 (105) Pulse Ox 99 O2 Delivery Room Air Blood Pressure Mean: 105 Progress Progress Note : Time: 20:19 Progress Note Patient had some polyps removed still having some bleeding. He was post to have ultrasound of gallbladder set up which she didn't get done. We'll have him call reschedule that. We did discuss the case with Dr. Ziegler who reviewed his clinic notes and set have him follow-up with him tomorrow morning in the clinic by calling for an appointment. He should already be on a PPI but we'll reinforce that if he is not. CBC CMP. Hemoglobin is okay at over 15 mg/dL. Departure Impression Primary Impression: Bright red blood per rectum Disposition: HOME, SELF-CARE Condition: Stable Departure-Patient Inst. Decision time for Depature: 20:20 Referrals: [facility] (PCP) Primary Care Physician OSMIN LUNA APRN (Family) Primary Care Physician Patient Instructions: Bloody Stools, Adult (DC) Add. Discharge Instructions: You do have internal hemorrhoids however there may be another explanation to yo ur bright red blood per rectum. You need to follow-up with Dr. Ziegler to discuss how to work this up. You may call ultrasound at [phone] and reset an appointment for the ultrasound. Tomorrow call Dr. Ziegler's office and get a follow-up appointment. Start taking omeprazole or pantoprazole if you are not already taking it. Your hemoglobin is okay at over 15 mg/dL today. Normal is between 12 and 16. Should you experience chest pain, shortness of air or other worrisome symptoms were welcome to return to the nearest ER for further evaluation. All discharge instructions reviewed with patient and/or family. Voiced understanding. CR ARMAS Jul 05, 2020 19:47
[2020-07-05 19:54] LABS: BASOPHILS % (AUTO) 1 % (0-10); EOSINOPHILS # (AUTO) 0.1 10^3/uL (0.0-0.3); EOSINOPHILS % (AUTO) 2 % (0-10); HEMATOCRIT 46 % (40-54); HEMOGLOBIN 15.2 g/dL (13.3-17.7); LYMPHOCYTES # (AUTO) 2.5 10^3/uL (1.0-4.0); LYMPHOCYTES % (AUTO) 36 % (12-44); MEAN CORPUSCULAR HEMOGLOBIN 29 pg (25-34); MEAN CORPUSCULAR HGB CONC 33 g/dL (32-36); MEAN CORPUSCULAR VOLUME 86 fL (80-99); MEAN PLATELET VOLUME 8.5 fL (9.0-12.2); MONOCYTES # (AUTO) 0.9 10^3/uL (0.0-1.0); MONOCYTES % (AUTO) 12 % (0-12); NEUTROPHILS # (AUTO) 3.4 10^3/uL (1.8-7.8); NEUTROPHILS % (AUTO) 48 % (42-75); PLATELET COUNT 242 10^3/uL (130-400)
[2020-07-05 20:06] LABS: INR 0.9 (0.8-1.4); PROTHROMBIN TIME PATIENT 12.6 SEC (12.2-14.7)
[2020-07-05 20:13] LABS: ALBUMIN 4.3 GM/DL (3.2-4.5)
[2020-07-05 20:14] LABS: POTASSIUM 3.5 MMOL/L (3.6-5.0)
[2020-07-05 20:15] LABS: CALCIUM 8.5 MG/DL (8.5-10.1)
[2020-07-05 20:16] LABS: TOTAL PROTEIN 7.9 GM/DL (6.4-8.2)
[2020-07-05 20:18] LABS: BILIRUBIN,TOTAL 0.6 MG/DL (0.1-1.0)
[2020-07-05 20:20] LABS: CREATININE SERUM 1.48 MG/DL (0.60-1.30)
[2020-07-05 20:24] VITALS: BP 132/92
== END 2020-07-05 20:24 | disposition home or self-care (01) ==
LOC: EDUNIT# 19:07 → ER 19:08
DX: K62.5 Hemorrhage of anus and rectum (principal); Z88.0 Allergy status to penicillin
CPT/HCPCS: 36415; 80053; 85025; 85610

== ENCOUNTER → 2020-10-04 | Outpatient (CLI) | payer MEDICAID ==
[~2020-10-04] MED LIST changes: +ALBUTEROL; +CETI10TA17; +PRD10T
== END ==
LOC: LAB FS 21:24
PROVIDERS: ATTEND Internal Medicine
DX: R19.7 Diarrhea, unspecified (principal)
CPT/HCPCS: 36415; 82705; 87015; 87045; 87046; 87324; 87328; 87329; 87449; 87899; 89055

== ENCOUNTER → 2021-03-29 | Outpatient (CLI) | payer MEDICAID ==
--- NOTE | 2021-03-29 09:54 | Diagnostic Imaging Report ---
INDICATION: Left-sided pain FINDINGS: The bowel gas pattern normal. There is no abnormal fecal loading. No dilated loops of bowel, air-fluid levels or free gas. No mass or mass effect. IMPRESSION: Unremarkable supine and upright abdominal films. Dictated by: Dictated on workstation # [id number]
== END ==
LOC: RAD FS 09:39
PROVIDERS: ATTEND Nurse Practitioner Family
DX: R10.32 Left lower quadrant pain (principal)
CPT/HCPCS: 74019

== ENCOUNTER 2021-04-14 17:55 | Emergency (ER) | payer MEDICAID ==
[~2021-04-14] VITALS: Ht 175 cm; Wt 94.3 kg
--- OUTSIDE RECORDS SUMMARY | 2021-04-14 18:02 | XMS REPORT | Clinical Summary ---
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 Not on file Active Problems Not on file Social History Date Tobacco Use Types Packs/Day Years Used Never Assessed Sex Assigned at Date Recorded Not on file Last Filed Vital Signs Not on file Plan of Treatment Health Maintenance Due Date Last Done Comments COVID-19 Vaccine (1) 1986 Influenza Vaccine (#1) 2021 HPV Vaccine Aged Out No longer eligible based on patient's age to complete this topic Pneumococcal Vaccine: Aged Out No longer eligib le based on patient's age to Pediatrics (0 to 5 Years) complete this topic and At-Risk Patients (6 to 64 Years) Results Not on filefrom Last 3 Months
--- OUTSIDE RECORDS SUMMARY | 2021-04-14 18:02 | XMS REPORT | Clinical Summary ---
Author Author [facility] Organization [facility] Address Unknown Phone Unavailable Care Team Providers Care Facility Supervisor Name Role Phone Savana Hinojosa Unavailable [phone] Kimberly Ty MD Unavailable Unavailable Harley Paul MD Unavailable Mitch Coronado MD Unavailable Evelyn Guillen NP PCP Source Comments Some departments are not documenting in the electronic medical record. If you d o not see the information that you expected, contact Release of Information in [facility] Information Management department at [phone] for further assistan ce in locating additional records.[facility] Allergies Comments Active Allergy Reactions Severity Noted Date Penicillins 09/05/2007 Medications End Date Status Medication Sig Dispensed Refills Start Date Active albuterol sulfate (PROAIR Inhale 2 0 HFA) 90 mcg/actuation HFA puffs by aerosol inhaler mouth into the lungs every 6 hours as needed for Wheezing or Shortness of Breath. Shake well before use. Active hydrocortisone Insert or 20 1 (ANUSOL-HC) 25 mg rectal Apply one suppository 1 suppository suppository to rectal area as directed every 12 hours. Active psyllium (METAMUCIL) 3.4 Take six 180 packet 3 0 gram packet packets by 1 mouth twice daily. Active loperamide (IMODIUM A-D) Take four 240 capsule 3 0 2 mg capsule capsules by 1 mouth twice daily as needed for Diarrhea. Active hydrocortisone 2.5% Apply to 28 g 0 (PROCTOZONE-HC) 2.5 % rectum BID X 1 rectal cream 10 days Active Diaper,Brief, Use daily for 30 each 3 Adult,Disposable (DEPEND fecal 1 REAL FIT BRIEF MEN L/XL) incontinence. misc Active Problems Problem Noted Date Homeless family 02/11/2021 Complex care coordination 02/11/2021 Diarrhea 12/31/2020 Full incontinence of feces 12/31/2020 Fecal urgency 12/31/2020 Encounters Care Team Description Date Type Specialty Carmen Bee APRN-MARTÍNEZ Diarrhea, unspecified type (Primary Dx); Fecal urgency; Full incontinence of feces; Homeless family; Complex care coordination 02/11/2021 Office Visit Gastroenterology 02/11/2021 Travel from Last 3 Months Surgical History Surgery Date Site/Laterality Comments CARPAL TUNNEL RELEASE Bilateral Approx 2018 or 2019 ESOPHAGEAL DILATATION Medical History Medical History Date Comments Asthma Family History Medical History Relation Name Comments Cancer-Colon Neg Hx GI Cancer Neg Hx Social History Date Tobacco Use Types Packs/Day Years Used Passive Smoke Exposure - Never Smoker Smokeless Tobacco: Current User Comments Alcohol Use Standard Drinks/Week No 0 (1 standard drink = 0.6 o z pure alcohol) Sex Assigned at Date Recorded Male 10/02/2020 9:32 AM [employer]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[employer] Last Filed Vital Signs Reading Time Taken Comments Vital Sign 143/88 02/11/2021 8:47 AM CDT Blood Pressure 90 02/11/2021 8:47 AM CDT Pulse 36.7 C (98.1 F) 02/11/2021 8:47 AM CDT Temperature 16 12/31/2020 1:30 PM CDT Respiratory Rate 100% 10/24/2020 7:30 AM [employer] Oxygen Saturation - - Inhaled Oxygen Concentration 94.3 kg (208 lb) 02/11/2021 8:47 AM CDT Weight 175.3 cm (5' 9.02") 02/11/2021 8:47 AM CDT Height 30.7 02/11/2021 8:47 AM CDT Body Mass Index Plan of Treatment Health Maintenance Due Date Last Done Comments HIV SCREENING 1989 DTAP/TDAP VACCINES (1 - 1992 Tdap) HEPATITIS C SCREENING 1992 PHYSICAL (COMPREHENSIVE) 1992 EXAM INFLUENZA VACCINE 05/31/2021 Results Not on filefrom Last 3 Months Insurance Type Payer Benefit Subscriber ID Effective Phone Address Plan / Dates Group AETNA MEDICAID AETNA [id number] BETTER [facility] [phone] 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
--- OUTSIDE RECORDS SUMMARY | 2021-04-14 18:02 | XMS REPORT | Clinical Summary ---
Author Author [facility] Organization [facility] Address Unknown Phone Unavailable Care Team Providers Care Ditcher Name Role Phone PCP Unavailable Allergies Not on File Medications Not on file Active Problems Not on file Social History Date Tobacco Use Types Packs/Day Years Used Never Assessed Sex Assigned at Date Recorded Not on file Last Filed Vital Signs Not on file Plan of Treatment Not on file Results Not on filefrom Last 3 Months
--- OUTSIDE RECORDS SUMMARY | 2021-04-14 18:02 | XMS REPORT | Clinical Summary ---
Author Author [facility] Organization [facility] Address Unknown Phone Unavailable Care Team Providers Care Vice President Consulting Services Name Role Phone PCP Unavailable Allergies Comments Active Allergy Reactions Severity Noted Date Penicillins 03/18/2011 Medications No known medications Active Problems Not on file Social History Date Tobacco Use Types Packs/Day Years Used Never Smoker Comments Alcohol Use Standard Drinks/Week No 0 (1 standard drink = 0.6 o z pure alcohol) Sex Assigned at Date Recorded Not on file Last Filed Vital Signs Reading Time Taken Comments Vital Sign 118/69 03/18/2011 9:00 PM CDT Blood Pressure 88 03/18/2011 9:06 PM CDT Pulse 36.7 C (98.1 F) 03/18/2011 5:53 PM CDT Temperature 16 03/18/2011 5:53 PM CDT Respiratory Rate 100% 03/18/2011 9:06 PM CDT Oxygen Saturation - - Inhaled Oxygen Concentration 81.6 kg (180 lb) 03/18/2011 5:53 PM CDT Weight - - Height - - Body Mass Index Plan of Treatment Health Maintenance Due Date Last Done Comments Varicella Vaccines (1 of 1975 2 - 2-dose childhood series) COVID-19 Vaccine (1) 1986 Hepatitis C Screening 1992 DTaP,Tdap,and Td Vaccines 1993 (1 - Tdap) MMR Vaccines-Adult 1993 Influenza Vaccine (#1) 2021 Pneumo-Vaccine: 65+Yrs (1 2039 of 1 - PPSV23) HIB Vaccines Aged Out No longer eligible based on patient's age to complete this topic IPV Vaccines Aged Out No longer eligible based on patient's age to complete this topic Meningococcal Vaccine Aged Out No longer eligib le based on patient's age to complete this topic Pneumo-Vaccine: Peds (0-5 Aged Out No longer el igible based on patient's age to Yrs) & At-Risk Patients complete this topic (6-64 Yrs) Rotavirus Vaccines Aged Out No longer eligible based on patient's age to complete this topic Results Not on filefrom Last 3 Months
--- NOTE | 2021-04-14 18:30 | ED GI ---
General Chief Complaint: Rect Problems Stated Complaint: BLOOD IN STOOLS Nursing Triage Note: PT PRESENTS TO ED VIA POV FROM HOME WITH COMPLAINTS OF RECTAL BLEEDING AND RECTAL PAIN STARTING TODAY. Source of Information: Patient Exam Limitations: No Limitations History of Present Illness Date Seen by Provider: Apr 14, 2021 Time Seen by Provider: 18:15 Initial Comments Patient is a 45-year-old male who presents to the emergency department today with a chief complaint of diarrheal stools and rectal bleeding. Patient [place] when he had to go to the bathroom and had 2 bowel movements and 1 he was concerned for blood clots in the stool. Patient denies any fevers or chills. He states that he chronically has pain at a "10" in his left lower quadrant. He is being followed by his primary care practitioner Osmin Luna and is going to be scheduled for an outpatient CAT scan of the abdomen and pelvis. He is also seen GI doctors at but he does not quite know why. He states that he is not taking any medications, does not take even Tylenol for pain. Denies feeling lightheaded or dizzy. Denies nausea. No other pain. No problems with urination. Does not recall if he has had a colonoscopy in the past. States that he thinks he has been here previously for blood in his stool. All other review of systems reviewed and negative except as stated. Timing/Duration: 1 Hour Severity/Quality: Moderate, Cramping Location: LLQ Radiation: No Radiation Activities at Onset: Activity Associated Symptoms: Denies Symptoms Allergies and Home Medications Allergies Coded Allergies: Penicillins (Verified Allergy, Unknown, A CHILD, 07/16/18) Patient Home Medication List Home Medication List Reviewed: Yes Review of Systems Review of Systems Constitutional: see HPI EENTM: No Symptoms Reported Respiratory: No Symptoms Reported Cardiovascular: No Symptoms Reported Gastrointestinal: Abdominal Pain, Blood Streaked Stools Genitourinary: No Symptoms Reported Musculoskeletal: no symptoms reported Skin: no symptoms reported Psychiatric/Neurological: No Symptoms Reported All Other Systems Reviewed Negative Unless Noted: Yes Past Ixxmttr-Pvvlnu-Iahkdh Hx Patient Social History Tobacco Use?: No Substance use?: No Alcohol Use?: No Pt feels they are or have been: No Immunizations Up To Date Tetanus Booster (TDap): Unknown PED Vaccines UTD: No Seasonal Allergies Seasonal Allergies: No Past Medical History Surgeries: Yes (BILAT CTR, TOENAIL REMOVAL; EGD,COLONOSCOPY) Orthopedic, Tonsillectomy Respiratory: No Cardiac: No Neurological: No Reproductive Disorders: No Genitourinary: No Gastrointestinal: Yes Gastroesophageal Reflux Musculoskeletal: Yes (BILATERAL CARPAL TUNNEL SURGERY) Endocrine: No HEENT: Yes Dysphagia, Tonsilitis Cancer: No Psychosocial: No Integumentary: No Blood Disorders: No Adverse Reaction/Blood Tranf: No (N/A) Physical Exam Vital Signs Vital Signs - First Documented 04/14/21 18:06 Pulse 87 Resp 18 B/P (MAP) 145/97 (113) Pulse Ox 98 Capillary Refill : Less Than 3 Seconds Height/Weight/BMI Height: 5'9.00" Weight: 212lbs. 6.0oz. 96.268790mm; 30.00 BMI Method:Stated General Appearance: WD/WN, no apparent distress HEENT: PERRL/EOMI Neck: full range of motion Respiratory: lungs clear, normal breath sounds, no respiratory distress Cardiovascular: regular rate, rhythm Gastrointestinal: soft, tenderness (Mild tenderness to palpation in the left lower quadrant) Rectal: normal exam, heme negative stool, other (Patient has some tenderness on digital rectal exam but no external hemorrhoids or internal hemorrhoids are palpated. He is heme-negative at the bedside however when he got up to have a stool he did have a little diarrheal stool that had blood streaked on the toilet paper) Extremities: normal inspection Neurologic/Psychiatric: alert, normal mood/affect, oriented x 3 Skin: normal color, warm/dry Progress/Results/Core Measures Results/Orders Lab Results Laboratory Tests Test 04/14/21 18:45 Range/Units White Blood Count 7.8 4.3-11.0 10^3/uL Red Blood Count 5.33 4.30-5.52 10^6/uL Hemoglobin 15.6 13.3-17.7 g/dL Hematocrit 46 40-54 % Mean Corpuscular Volume 86 80-99 fL Mean Corpuscular Hemoglobin 29 25-34 pg Mean Corpuscular Hemoglobin Concent 34 32-36 g/dL Red Cell Distribution Width 12.9 10.0-14.5 % Platelet Count 249 130-400 10^3/uL Mean Platelet Volume 8.9 L 9.0-12.2 fL Immature Granulocyte % (Auto) 1 % Neutrophils (%) (Auto) 60 42-75 % Lymphocytes (%) (Auto) 26 12-44 % Monocytes (%) (Auto) 11 0-12 % Eosinophils (%) (Auto) 1 0-10 % Basophils (%) (Auto) 1 0-10 % Neutrophils # (Auto) 4.7 1.8-7.8 10^3/uL Lymphocytes # (Auto) 2.1 1.0-4.0 10^3/uL Monocytes # (Auto) 0.9 0.0-1.0 10^3/uL Eosinophils # (Auto) 0.1 0.0-0.3 10^3/uL Basophils # (Auto) 0.1 0.0-0.1 10^3/uL Immature Granulocyte # (Auto) 0.1 0.0-0.1 10^3/uL Sodium Level 142 135-145 MMOL/L Potassium Level 3.3 L 3.6-5.0 MMOL/L Chloride Level 108 H 98-107 MMOL/L Carbon Dioxide Level 22 21-32 MMOL/L Anion Gap 12 5-14 MMOL/L Blood Urea Nitrogen 10 7-18 MG/DL Creatinine 1.13 0.60-1.30 MG/DL Estimat Glomerular Filtration Rate 70 BUN/Creatinine Ratio 9 Glucose Level 99 70-105 MG/DL Calcium Level 8.9 8.5-10.1 MG/DL Corrected Calcium 8.8 8.5-10.1 MG/DL Total Bilirubin 0.6 0.1-1.0 MG/DL Aspartate Amino Transf (AST/SGOT) 26 5-34 U/L Alanine Aminotransferase (ALT/SGPT) 32 0-55 U/L Alkaline Phosphatase 91 40-136 U/L Total Protein 7.5 6.4-8.2 GM/DL Albumin 4.1 3.2-4.5 GM/DL My Orders Orders - HANNAH HENDRICKS MD Cbc With Automated Diff (04/14/21 18:28) Comprehensive Metabolic Panel (04/14/21 18:28) Fecal Occult Bedside (04/14/21 18:28) Parasite Scrn Stool Giard Cryp (04/14/21 18:31) C Difficile Ag + Toxin A/B. (04/14/21 18:31) Stool Culture (04/14/21 18:31) Isolation Central Supply Req (04/14/21 18:31) Vital Signs/I&O 04/14/21 18:06 Pulse 87 Resp 18 B/P (MAP) 145/97 (113) Pulse Ox 98 Blood Pressure Mean: 113 Progress Progress Note : Time: 18:38 Progress Note Per review of the patient's medical record he did have an EGD and colonoscopy in March 2020, 1 year ago. Patient was noted to have some polyps as well as mild internal hemorrhoids. Polyps were biopsied per Dr. Bradshaw. Patient subsequently had an ED visit in July as well for a little gastrointestinal bleeding and was advised to make sure he was on a PPI or other acid fibrous wallboard inspector. He was scheduled to follow-up with Dr. Bradshaw but he cannot tell me if he actually did this or not. At this point in time we will check patient's basic labs as well as submit stool studies. His vital signs are stable. His abdominal exam is basically benign other than a little left lower quadrant abdominal tenderness. He is afebrile not have any nausea no vomiting. I do not suspect acute diverticulitis as the patient had no diverticula on colonoscopy 1 year ago. His primary Osmin Luna is working him up in scheduling an outpatient CAT scan and further follow-up. Pending normal laboratory studies will send him home again to start a PPI and to follow-up with her. 193 Patient's labs reviewed, he has a mildly decreased potassium at 3.3. Stable hemoglobin. Liver function studies have returned to normal. Patient is strongly advised to call his primary care provider's office tomorrow for a follow-up appointment and further investigation into this outpatient CT scan that he likely has ordered. He is also encouraged to follow-up with his GI doctor. He is given good return precautions. He verbalizes understanding. All questions are sought and answered. Departure Impression Primary Impression: Hematochezia Additional Impression: Internal hemorrhoids Disposition: HOME, SELF-CARE Condition: Stable Departure-Patient Inst. Decision time for Depature: 19:32 Referrals: [facility] (PCP) Primary Care Physician OSMIN LUNA APRN (Family) Primary Care Physician HAY BRADSHAW DO Patient Instructions: Bloody Stools Add. Discharge Instructions: 1. Call Osmin Luna's office tomorrow for a follow up about your CT Scan. 2. Contact your [facility] doctor (the GI doctor) and see when you have a follow up appointment scheduled. 3. Drink lots of fluids to stay well hydrated. 4. You can take over the counter tylenols, 2 pills every 4-6 hours for your chronic abdominal pain. 5. If you have worse pain, especially with fever, vomiting, increased amounts of blood in your stools or if you feel lightheaded or dizzy after passing lots of blood please come back to the Emergency Department to be seen again. HANNAH HENDRICKS MD Apr 14, 2021 18:30
[2021-04-14 18:51] LABS: BASOPHILS # (AUTO) 0.1 10^3/uL (0.0-0.1); BASOPHILS % (AUTO) 1 % (0-10); EOSINOPHILS # (AUTO) 0.1 10^3/uL (0.0-0.3); EOSINOPHILS % (AUTO) 1 % (0-10); HEMATOCRIT 46 % (40-54); HEMOGLOBIN 15.6 g/dL (13.3-17.7); LYMPHOCYTES # (AUTO) 2.1 10^3/uL (1.0-4.0); LYMPHOCYTES % (AUTO) 26 % (12-44); MEAN CORPUSCULAR HEMOGLOBIN 29 pg (25-34); MEAN CORPUSCULAR HGB CONC 34 g/dL (32-36); MEAN CORPUSCULAR VOLUME 86 fL (80-99); MEAN PLATELET VOLUME 8.9 fL (9.0-12.2); MONOCYTES # (AUTO) 0.9 10^3/uL (0.0-1.0); MONOCYTES % (AUTO) 11 % (0-12); NEUTROPHILS # (AUTO) 4.7 10^3/uL (1.8-7.8); NEUTROPHILS % (AUTO) 60 % (42-75); PLATELET COUNT 249 10^3/uL (130-400); WHITE BLOOD COUNT 7.8 10^3/uL (4.3-11.0)
[2021-04-14 19:22] LABS: ALBUMIN 4.1 GM/DL (3.2-4.5); BILIRUBIN,TOTAL 0.6 MG/DL (0.1-1.0); CALCIUM 8.9 MG/DL (8.5-10.1); CREATININE SERUM 1.13 MG/DL (0.60-1.30); POTASSIUM 3.3 MMOL/L (3.6-5.0); TOTAL PROTEIN 7.5 GM/DL (6.4-8.2)
[2021-04-14 19:37] VITALS: BP 139/87
== END 2021-04-14 19:39 | disposition home or self-care (01) ==
LOC: EDUNIT# 17:55 → ER 17:58
DX: K92.1 Melena (principal); K64.8 Other hemorrhoids
CPT/HCPCS: 36415; 80053; 82274; 85025; 87015; 87045; 87046; 87324; 87328; 87329; 87449; 87899

== ENCOUNTER → 2021-04-19 | Outpatient (CLI) | payer MEDICAID ==
[~2021-04-19] MED LIST changes: +HOLD METFORMIN - RECEIVED CONTRAST 20 ML VIAL IV SCH; +IOHEXOL 350 MG/ML 100 ML (OMNIPAQUE 350) VIAL IV ONE; +NS 100 ML (IVPB) BAG IV ONE
--- NOTE | 2021-04-19 17:35 | Diagnostic Imaging Report ---
Procedure: CT abdomen with contrast only. Technique: Multiple contiguous axial images were obtained through the abdomen after the administration of intravenous contrast. Auto Exposure Controls were utilized during the CT exam to meet ALARA standards for radiation dose reduction. Date: April 19, 2021. Indication: 45-year-old male, lower abdominal pain for 10 months. Comparison: Radiographs March 29, 2021. Findings: There is a 4 mm noncalcified left lower lobe pulmonary nodule. The heart is not enlarged. There is no pericardial effusion. There is diffuse fatty infiltration of the liver. The outer liver contours are not nodular. There is a low-attenuation lesion in the left lobe of the liver on axial image 16 measuring 8 mm in size too small to characterize. There are additional similar-appearing subcentimeter low-attenuation lesions in the right lobe of the liver. The main, right, and left portal veins are patent. The gallbladder is contracted. There is no biliary ductal dilation. The main pancreatic duct is not abnormally dilated. Unremarkable appearance of the pancreatic parenchyma. The spleen is normal in size. The adrenal glands are unremarkable. Unremarkable appearance of the renal parenchyma. The urinary collecting systems are not distended in their visualized extent. There does appear to be abnormal mucosal enhancement of the sigmoid colon. The imaged portions of the intestinal tract are not distended. There is no free intraperitoneal air. There is no drainable fluid collection. There is no identified sizable volume ascites in the included [id number]. There is no identified abnormally enlarged lymph node in the abdomen meeting CT size criteria for adenopathy. There is no identified acute bony abnormality. Impression: 1. Mucosal enhancement at the level of the sigmoid colon concerning for a nonspecific colitis. 2. Diffuse fatty infiltration of the liver. 3. Subcentimeter low-attenuation liver lesions too small to characterize. 4. The pelvis is not in the included field of view of imaging. Dictated by: Dictated on workstation # [id number]
== END ==
LOC: RAD 15:15
PROVIDERS: ATTEND Nurse Practitioner Family
DX: K76.0 Fatty (change of) liver, not elsewhere classified (principal); K76.89 Other specified diseases of liver
CPT/HCPCS: 74160

== ENCOUNTER → 2021-06-07 | Outpatient (CLI) | payer MEDICAID ==
[~2021-06-07] MED LIST changes: -HOLD METFORMIN - RECEIVED CONTRAST 20 ML VIAL IV SCH; -IOHEXOL 350 MG/ML 100 ML (OMNIPAQUE 350) VIAL IV ONE; -NS 100 ML (IVPB) BAG IV ONE
== END ==
LOC: LAB FS 11:32
DX: Z01.812 Encounter for preprocedural laboratory examination (principal); Z20.822 Contact with and (suspected) exposure to COVID-19
CPT/HCPCS: 87635

== ENCOUNTER → 2021-07-16 | Outpatient (CLI) | payer MEDICAID ==
--- NOTE | 2021-07-16 09:50 | Diagnostic Imaging Report ---
Indication: Back pain. 3 views. Lumbosacral spine shows good alignment. Body height is well-maintained. Facets show good alignment without evidence of pars defect. Minimal hypertrophic lipping of the endplates noted anteriorly. SI joints are symmetrical and normal. IMPRESSION: Mild degenerative facet changes along the anterior endplates throughout the lumbar spine. Dictated by: Dictated on workstation # [id number]
--- NOTE | 2021-07-16 09:58 | Diagnostic Imaging Report ---
INDICATION: Low back pain into the tailbone. No known injury. TECHNIQUE: AP and lateral views of the sacrum and coccyx at 9:26 AM. CORRELATION STUDY: None. FINDINGS: SI joints are unremarkable without effusion or erosion. There is prominent angulation at the tip of the coccyx; however, this appears to be likely nonacute. A definitive acute displaced sacrococcygeal fracture is not present. Mild disc space narrowing at the L5-S1 level. Visualized pubic symphysis is unremarkable. Pectineal lines and obturator rings appear maintained. IMPRESSION: Negative for acute bony abnormality of the sacrum and/or coccyx. Dictated by: Dictated on workstation # [id number]
== END ==
LOC: RAD FS 09:07
PROVIDERS: ATTEND Nurse Practitioner Family
DX: M47.816 Spondylosis without myelopathy or radiculopathy, lumbar region (principal)
CPT/HCPCS: 72100; 72220

== ENCOUNTER → 2022-06-05 | Outpatient (CLI) | payer MEDICAID ==
--- NOTE | 2022-06-05 13:00 | Diagnostic Imaging Report ---
EXAMINATION: Chest 2 view HISTORY: RIB PAIN, PERSISTENT COUGH COMPARISON: None FINDINGS: Heart size and pulmonary vasculature are normal. The lungs are clear without consolidation, pleural effusion, or pneumothorax. The osseous structures are intact. IMPRESSION: 1. No acute radiographic abnormality in the chest. Dictated by: Dictated on workstation # [id number]
--- NOTE | 2022-06-05 15:10 | Diagnostic Imaging Report ---
INDICATION: Pain. Cough. FINDINGS: The bilateral rib radiographs show what appear to be old healed deformities postero-laterally at the level of the right 8th and 9th ribs. An acute or subacute rib fracture is not identified. No evidence for lung contusion, pneumothorax, hemothorax or pleural hematoma. No free air beneath the diaphragms. IMPRESSION: No acute-appearing abnormality. Dictated by: Dictated on workstation # [id number]
== END ==
LOC: RAD FS 11:11
PROVIDERS: ATTEND Nurse Practitioner Family
DX: R07.81 Pleurodynia (principal); R05.3 Chronic cough
CPT/HCPCS: 71046; 71110

== ENCOUNTER 2023-01-20 22:01 | Emergency (ER) | payer MEDICAID ==
[~2023-01-20] VITALS: Ht 175.2 cm; Wt 92.9 kg
[2023-01-20 22:05] VITALS: BP 170/98
[2023-01-20] MEDS ORDERED: ACETAMINOPHEN 500 MG TAB (TYLENOL) PO ONE (22:15)
[2023-01-20] MEDS ORDERED: IBUPROFEN 600 MG (MOTRIN) TAB PO ONE (22:15)
[2023-01-20] MEDS ORDERED: IBUP-1773 PO (22:16)
--- NOTE | 2023-01-20 22:16 | ED General ---
General Stated Complaint: L ELBOW,R SIDE OF NECK,CHEST,BACK PAIN Source of Information: Patient Exam Limitations: No Limitations History of Present Illness Date Seen by Provider: January 20, 2023 Time Seen by Provider: 22:03 Initial Comments 47-year-old male coming in after he fell off the lawnmower onto his back onto some concrete. This occurred more than 10 hours prior to arrival. He has been ambulatory since then. Denies any weakness or numbness. Did not hit his head or pass out. He is having right mid to lateral back pain, lateral right-sided neck pain, and left elbow pain. He has not taken anything for it as of yet. Allergies and Home Medications Allergies Coded Allergies: Penicillins (Verified Allergy, Unknown, A CHILD, 07/16/18) Patient Home Medication List Home Medication List Reviewed: Yes Cetirizine HCl (Cetirizine HCl) 10 Mg Tablet, (Reported) Entered as Reported by: ANANTH ROMERO on 07/05/201916 Ibuprofen (Ibuprofen) 600 Mg Tablet, 600 MG PO Q6H PRN for PAIN-MILD Prescribed by: BERNARDO PERKINS on 01/20/232215 Prednisone (Prednisone) 10 Mg Tab, (Reported) Entered as Reported by: ANANTH ROMERO on 07/05/201916 [Albuterol] , (Reported) Entered as Reported by: ANANTH ROMERO on 07/05/201916 Review of Systems Review of Systems Constitutional: No fever EENTM: no symptoms reported Respiratory: no symptoms reported Cardiovascular: no symptoms reported Gastrointestinal: no symptoms reported Genitourinary: no symptoms reported Musculoskeletal: see HPI Skin: no symptoms reported Psychiatric/Neurological: No Symptoms Reported Hematologic/Lymphatic: No Symptoms Reported Immunological/Allergic: no symptoms reported Past Ycjuxgo-Kpxmsm-Aikvjb Hx Immunizations Up To Date Tetanus Booster (TDap): Unknown PED Vaccines UTD: No Seasonal Allergies Seasonal Allergies: No Past Medical History Surgeries: Yes (BILAT CTR, TOENAIL REMOVAL; EGD,COLONOSCOPY) Orthopedic, Tonsillectomy Respiratory: No Cardiac: No Neurological: No Reproductive Disorders: No Genitourinary: No Gastrointestinal: Yes Gastroesophageal Reflux Musculoskeletal: Yes (BILATERAL CARPAL TUNNEL SURGERY) Endocrine: No HEENT: Yes Dysphagia, Tonsilitis Cancer: No Psychosocial: No Integumentary: No Blood Disorders: No Adverse Reaction/Blood Tranf: No (N/A) Physical Exam Vital Signs Vital Signs - First Documented 01/20/23 22:05 Temp 35.8 Pulse 76 Resp 18 B/P (MAP) 170/98 (122) Pulse Ox 98 O2 Delivery Room Air Capillary Refill : Height, Weight, BMI Height: 5'9.00" Weight: 212lbs. 6.0oz. 96.987264vt; 30.00 BMI Method:Stated General Appearance: No Apparent Distress, WD/WN Eyes: Bilateral Eye Normal Inspection HEENT: PERRL/EOMI, Normal ENT Inspection, Pharynx Normal Neck: Full Range of Motion, Normal Inspection, Supple, Other (Right lateral neck tenderness along the trapezius) Respiratory: Lungs Clear, Normal Breath Sounds, No Accessory Muscle Use, No Respiratory Distress, Other (Mild chest wall tenderness over the sternum) Cardiovascular: Regular Rate, Rhythm, No Edema, Normal Peripheral Pulses Gastrointestinal: Normal Bowel Sounds, Non Tender, Soft; No Distended, No Guarding Back: Normal Inspection, No CVA Tenderness, No Vertebral Tenderness, Other (Right thoracic paravertebral tenderness, no midline tenderness) Extremity: Normal Capillary Refill, Normal Inspection, Normal Range of Motion, No Calf Tenderness, No Pedal Edema, Other (Left elbow tenderness over the olecranon) Neurologic/Psychiatric: Alert, No Motor/Sensory Deficits, Normal Mood/Affect Skin: Normal Color, Warm/Dry Progress/Results/Core Measures Suspected Sepsis SIRS Temperature: Pulse: Respiratory Rate: Blood Pressure / Mean: Results/Orders My Orders Orders - BERNARDO PERKINS MD Chest 1 View Ap/Pa Only (01/20/23 22:09) Elbow 3 View Left (01/20/23 22:09) Thoracic Spine 2 View Only (01/20/23 22:09) Ibuprofen Tablet (Motrin Tablet) (01/20/23 22:15) Acetaminophen Tablet (Tylenol Tablet) (01/20/23 22:15) Medications Given in ED Current Medications Medications Dose Ordered Sig/Minesh Route Start Time Stop Time Status Last Admin Dose Admin Acetaminophen 1,000 mg ONCE ONCE PO 01/20/23 22:15 01/20/23 22:16 DC 01/20/23 22:14 1,000 MG Ibuprofen 600 mg ONCE ONCE PO 01/20/23 22:15 01/20/23 22:16 DC 01/20/23 22:14 600 MG Vital Signs/I&O 01/20/23 22:05 Temp 35.8 Pulse 76 Resp 18 B/P (MAP) 170/98 (122) Pulse Ox 98 O2 Delivery Room Air Capillary Refill : Progress Note : Progress Note 47-year-old male with above history coming in after he was thrown off his lawnmower onto his back onto some concrete more than 10 hours prior to arrival. ABCs were intact, GCS 15, vital stable on presentation. Physical exam with some right lateral neck tenderness, right lateral thoracic tenderness, and left elbow tenderness. He has no midline tenderness, has been ambulatory, and no red flags including normal neurovascular exam. He is Graham head and cervical spine rule negative. Chest x-ray, thoracic spine x-ray, and elbow x-ray ordered although I have a very low suspicion for fracture. He was given Tylenol and ibuprofen for pain control. On my interpretation I do not see any fractures or dislocations. He does have arthritic changes in his elbow and in his thoracic spine. I believe the patient is stable for discharge with outpatient follow-up. He was sent home with strict return precautions. Diagnostic Imaging Diagonstic Imaging: Xray (chest, thoracic spine, left elbow) Departure Impression Primary Impression: Fall Qualified Codes: W19.XXXA - Unspecified fall, initial encounter Additional Impressions: Contusion of elbow, left Qualified Codes: S50.02XA - Contusion of left elbow, initial encounter Back contusion Qualified Codes: S20.221A - Contusion of right back wall of thorax, initial encounter Disposition: 01 HOME, SELF-CARE Condition: Stable Departure-Patient Inst. Decision time for Depature: 10:35 Referrals: OSMIN LUNA APRN (PCP) Primary Care Physician [facility] (Family) Primary Care Physician Patient Instructions: Bruised Rib Add. Discharge Instructions: Fortunately nothing is broken or dislocated, but you do have some deep bruises on your bones. These will improve with time. Prescription strength ibuprofen was sent to your pharmacy. You can also try ice or heating pad, whichever feels better. If pain is not improved in the next 2 weeks, then follow back up with your regular doctor. Scripts Ibuprofen (Ibuprofen) 600 Mg Tablet 600 MG PO Q6H PRN for PAIN-MILD for 7 Days, #28 TAB Prov: BERNARDO PERKINS MD 01/20/23 Work/School Note: Work Release Form Date Seen in the Emergency Department: January 20, 2023 Return to Work: January 22, 2023 Restrictions: No Restrictions BERNARDO PERKINS MD January 20, 2023 22:16
--- NOTE | 2023-01-21 07:05 | Diagnostic Imaging Report ---
INDICATION: Crush injury. FINDINGS: Frontal chest is clear. The lungs are normal. No infiltrate, effusion or pneumothorax. Cardiomediastinal and hilar contours normal. Diaphragms appeared smooth. IMPRESSION: Unremarkable frontal chest. Dictated by: Dictated on workstation # [id number]
--- NOTE | 2023-01-21 07:06 | Diagnostic Imaging Report ---
INDICATION: Crush injury. FINDINGS: Two-view thoracic spine showed normal vertebral statures aligned anatomically. On the lateral view, no depression or deformity of the sternum or manubrium. The visible rib segments, lungs and pleura are unremarkable. IMPRESSION: No fracture, malalignment or other acute/posttraumatic abnormalities identified. Dictated by: Dictated on workstation # [id number]
--- NOTE | 2023-01-21 07:14 | Diagnostic Imaging Report ---
INDICATION: Pain FINDINGS: There is severe arthritic changes to the elbow. There is no displaced fat pad or findings of a joint effusion or hemarthrosis. Some chronic soft tissue calcifications along the medial stabilizers, collar of hypertrophic degenerative bone along the radial head neck junction is present but no visible fracture. 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 No fracture identified and no evidence for joint effusion. Dictated by: Dictated on workstation # [id number]
== END 2023-01-20 22:38 | disposition home or self-care (01) ==
LOC: EDUNIT# 22:01 → ER FS 22:02
DX: S50.02XA Contusion of left elbow, initial encounter (principal); S20.221A Contusion of right back wall of thorax, initial encounter; M54.2 Cervicalgia; R07.89 Other chest pain; W17.89XA Other fall from one level to another, initial encounter
CPT/HCPCS: 71045; 72070; 73080